=== PATIENT | male | born 1985 | race Hispanic/Latino ===

== ENCOUNTER 2018-07-03 09:48 | Emergency (ER) | payer OTHER ==
[2018-07-03 10:41] LABS: BASOPHILS % (AUTO) 0.3 % (0.0-5.0); EOSINOPHILS % (AUTO) 1.5 % (0.0-8.0); HEMATOCRIT 39.7 % (42-54); LYMPHOCYTES % (AUTO) 14.4 % (21.0-51.0); MEAN CORPUSCULAR HEMOGLOBIN 28.8 pg (27.0-33.0); MEAN CORPUSCULAR VOLUME 84.7 fL (79-99); MONOCYTES % (AUTO) 6.4 % (3.0-13.0); NEUTROPHILS % (AUTO) 77.4 % (40.0-77.0); PLATELET COUNT (AUTO) 219 K/uL (130-400); RED BLOOD CELL COUNT(AUTO) 4.68 MIL/uL (4.50-6.20); RED CELL DISTRIBUTION WIDTH 13.6 % (11.0-15.5)
[2018-07-03 10:44] LABS: APPEARANCE,URINE Clear (CLEAR); BILIRUBIN,URINE Small (NEGATIVE); COLOR,URINE Dark Yellow (YELLOW); GLUCOSE, URINE (UA) Negative (NEGATIVE); KETONES,URINE 15 mg/dL (NEGATIVE); LEUKOCYTE ESTERASE ,URINE Negative (NEGATIVE); NITRATE,URINE Negative (NEGATIVE); OCCULT BLOOD,URINE Negative (NEGATIVE); PH,URINE 5.5 (5.0-8.0); PROTEIN,URINE Negative (NEGATIVE)
[2018-07-03 10:52] LABS: CREATININE 1.1 mg/dL (0.5-1.5); POTASSIUM 3.3 mmol/L (3.5-5.1)
[2018-07-03 10:55] LABS: BACTERIA,URINE Rare /HPF (None Seen); MUCUS,URINE Rare LPF (None Seen); RBC,URINE 0-1 /HPF (0-1); SQUAMOUS EPITHELIAL CELL,UR Rare /HPF (0-2); WBC,URINE 0-1 /HPF (0-1)
[2018-07-03 10:56] LABS: ALBUMIN 3.7 g/dL (3.5-5.0); BILIRUBIN,TOTAL 1.1 mg/dL (0.2-1.0); TOTAL PROTEIN, SERUM 7.3 g/dL (6.0-8.3)
== END 2018-07-03 13:01 | disposition home or self-care (01) ==
LOC: EDH 09:48
DX: K52.9 Noninfective gastroenteritis and colitis, unspecified (principal); Z87.891 Personal history of nicotine dependence
CPT/HCPCS: 36415; 76705; 80053; 81001; 85025; 87804; 96360; 96361

== ENCOUNTER 2021-02-26 09:12 | Emergency (ER) | payer SELFPAY ==
[~2021-02-26] VITALS: Ht 167.6 cm; Wt 99.8 kg
[2021-02-26] MEDS ORDERED: MAG/ALUM/SIMETH 30 ML UDCUP ONE (09:46)
[2021-02-26] MEDS ORDERED: LIDOCAINE HCL 2% VISCOUS 15 ML UDCUP PO ONE (10:00)
[2021-02-26] MEDS ORDERED: ONDANSETRON ODT 4MG TAB SL ONE (10:00)
[2021-02-26 10:57] LABS: BASOPHILS % (AUTO) 0.7 % (0.0-5.0); EOSINOPHILS % (AUTO) 1.7 % (0.0-8.0); HEMATOCRIT 43.4 % (42-54); MEAN CORPUSCULAR VOLUME 87.5 fL (79-99); MONOCYTES % (AUTO) 4.6 % (3.0-13.0); NEUTROPHILS % (AUTO) 65.7 % (40.0-77.0); PLATELET COUNT (AUTO) 243 K/uL (130-400); RED BLOOD CELL COUNT(AUTO) 4.96 MIL/uL (4.50-6.20); RED CELL DISTRIBUTION WIDTH 13.9 % (11.0-15.5); WHITE BLOOD COUNT (AUTO) 7.1 K/uL (4.8-10.8)
[2021-02-26 11:41] LABS: CREATININE 1.2 mg/dL (0.5-1.5); POTASSIUM 4.4 mmol/L (3.5-5.1)
[2021-02-26 11:46] LABS: BILIRUBIN,TOTAL 0.3 mg/dL (0.2-1.0); TOTAL PROTEIN, SERUM 7.4 g/dL (6.0-8.3)
[2021-02-26] MEDS ORDERED: MAG-55 PO (12:31)
[2021-02-26] MEDS ORDERED: OMEP20TA25 PO (12:31)
[2021-02-26 12:37] VITALS: BP 118/74
== END 2021-02-26 12:40 | disposition home or self-care (01) ==
LOC: EDH 09:12
DX: K29.70 Gastritis, unspecified, without bleeding (principal); Z79.899 Other long term (current) drug therapy; Z88.1 Allergy status to other antibiotic agents
CPT/HCPCS: 36415; 71045; 76705; 80053; 83690; 85025

== ENCOUNTER 2021-04-24 19:21 | Emergency (ER) | payer OTHER ==
[~2021-04-24] VITALS: Ht 167.6 cm; Wt 90.3 kg
[~2021-04-24 19:21] MED LIST: MAG-55 PO; OMEP20TA25 PO
[2021-04-24 19:22] VITALS: BP 136/87
== END 2021-04-24 20:19 | disposition home or self-care (01) ==
LOC: EDH 19:21
DX: M79.672 Pain in left foot (principal); Z53.21 Procedure and treatment not carried out due to patient leaving prior to being seen by health care provider

== ENCOUNTER 2024-01-22 08:03 | Emergency (ER) | payer SELFPAY ==
[~2024-01-22] VITALS: Ht 167.6 cm; Wt 86.2 kg
[~2024-01-22 08:03] MED LIST changes: +OMEP20TA20 PO; -OMEP20TA25 PO
[2024-01-22] MEDS: DiphenhydrAMINE HCL 25 MG CAPSULE PO ONE (08:41)
[2024-01-22] MEDS: predniSONE 20 MG TABLET PO ONE (08:41)
[2024-01-22 09:40] VITALS: BP 137/89; PULSE 73; RESP 18; TEMP 98.8; O2SAT 98
== END 2024-01-22 09:50 | disposition home or self-care (01) ==
LOC: EDH 08:03
DX: T78.3XXA Angioneurotic edema, initial encounter (principal); Z88.1 Allergy status to other antibiotic agents; X58.XXXA Exposure to other specified factors, initial encounter; Y93.89 Activity, other specified; Y92.89 Other specified places as the place of occurrence of the external cause; Y99.8 Other external cause status
CPT/HCPCS: 99283; Q0163